=== PATIENT | male | born 1970 | race Caucasian/White ===

== ENCOUNTER 2016-12-14 15:29 | Emergency (ER) | payer OTHER, MEDICAID ==
[~2016-12-14] VITALS: Ht 172.7 cm; Wt 83.9 kg
[~2016-12-14 15:29] MED LIST: PARO10TA26 PO; QUET25TA PO
[2016-12-14 15:47] VITALS: BP 145/87
--- NOTE | 2016-12-14 16:00 | NUR ---
PT IS MEDICALLY CLEARED FOR BOOKING. D/C TO PD IN STABLE CONDITION.
== END 2016-12-14 16:03 ==
LOC: ER 15:31
DX: Z02.89 Encounter for other administrative examinations (principal); F10.129 Alcohol abuse with intoxication, unspecified; F20.9 Schizophrenia, unspecified; Z59.0 Homelessness; F17.200 Nicotine dependence, unspecified, uncomplicated
CPT/HCPCS: 99283; A4606; Z7610

== ENCOUNTER 2017-11-20 12:46 | Emergency (ER) | payer MEDICAID, OTHER ==
[~2017-11-20] VITALS: Ht 172.7 cm; Wt 84.4 kg
[~2017-11-20 12:46] MED LIST changes: -PARO10TA26 PO; +PARO10TA86 PO
--- NOTE | 2017-11-20 12:50 | NUR ---
Note undone in EDM - 11/20/17 at 1323 by MARYAM BIB RA 86, FOUND LAYING IN THE SIDEWALK,(+) ETOH BREATH,ADMIT TO USING HEROINE YESTERDAY, BLOOD SUGAR=80. RR IS EVEN AND UNLABORED WITH NAD NOTED. SKIN IS WARM AND DRY. PLACED ON THE MONITOR. AWAITING MD FOR EVAL.
--- NOTE | 2017-11-20 12:50 | NUR ---
BIB RA 86, FOUND LAYING IN THE SIDEWALK,(+) ETOH BREATH,ADMIT TO USING HEROIN X YESTERDAY, BLOOD SUGAR=80. RR IS EVEN AND UNLABORED WITH NAD NOTED. SKIN IS WARM AND DRY. PLACED ON THE MONITOR. AWAITING MD FOR EVAL.
[2017-11-20] MEDS ORDERED: IV NS 0.9% 1,000 ML BAG IV ONE (13:00)
[2017-11-20] MEDS ORDERED: ONDANSETRON HCL/PF 4 MG/2 ML VIAL IVP ONE (13:00)
[2017-11-20] MEDS ORDERED: ONDANSETRON HCL/PF 4 MG/2 ML VIAL ONE (13:15)
--- NOTE | 2017-11-20 13:30 | NUR ---
Patient is resting comfortably in bed with eyes closed. Easily aroused. VSS
[2017-11-20 13:32] LABS: BASOPHILS # (AUTO) 0.2 /CMM (0.0-0.2); BASOPHILS % (AUTO) 2.9 % (0.0-2.0); EOSINOPHILS % (AUTO) 2.9 % (0.0-6.0); HEMATOCRIT 42 % (39-51); HEMOGLOBIN 14.7 g/dL (13.5-17.5); LYMPHOCYTES % (AUTO) 28.1 % (20.0-44.0); MEAN CORPUSCULAR HEMOGLOBIN 31 PG (26.0-33.0); MEAN CORPUSCULAR HGB CONC 35 g/dl (31.0-36.0); MEAN CORPUSCULAR VOLUME 89 fL (80-96); MONOCYTES # (AUTO) 0.5 /CMM (0.1-1.30); MONOCYTES % (AUTO) 7.7 % (2.0-12.0); NEUTROPHILS # (AUTO) 4.1 /CMM (1.8-8.9); NEUTROPHILS % (AUTO) 58.4 % (43.0-81.0); PLATELET COUNT (AUTO) 168 /CMM (150-450); RDW COEFFICIENT OF VARIATION 12.6 (11.5-15.0); RED BLOOD CELL COUNT(AUTO) 4.71 MIL/uL (4.5-6.0)
[2017-11-20 13:39] LABS: CARBON DIOXIDE 26 mmol/L (21-32); CHLORIDE 107 mmol/L (98-107); CREATININE 0.9 mg/dL (0.6-1.3); GLUCOSE 106 mg/dL (74-106); POTASSIUM 3.6 mmol/L (3.5-5.1); SODIUM SERUM 142 mmol/L (136-145); UREA NITROGEN, BLOOD 11 mg/dL (7-18)
[2017-11-20 13:51] LABS: ALANINE AMINOTRANSFERASE 41 U/L (12-78); ALCOHOL, BLOOD 223 mg/dL (0-0); ALKALINE PHOSPHATASE 77 U/L (46-116); ASPARTATE AMINOTRANSFERASE 54 U/L (15-37); BILIRUBIN,DIRECT 0.2 mg/dL (0.0-0.2); BILIRUBIN,TOTAL 1.1 mg/dL (0.2-1.0); TOTAL PROTEIN, SERUM 6.9 g/dL (6.4-8.2)
[2017-11-20 13:53] LABS: ACETAMINOPHEN < 2 ug/ml (10-30); SALICYLATE 0.5 mg/dL (2.8-20.0)
[2017-11-20 14:08] LABS: APPEARANCE,URINE Slightly Cloudy (CLEAR); BILIRUBIN,URINE SMALL (NEGATIVE); BLOOD, URINE Small Ery/uL (NEGATIVE); COLOR,URINE Yellow (YELLOW); KETONES,URINE 15 (NEGATIVE); LEUKOCYTE ESTERASE ,URINE Negative (NEGATIVE); NITRITE, URINE Negative (NEGATIVE); PH,URINE 5.5 (5.0-8.0); PROTEIN,URINE 100 mg/dl (NEGATIVE); UGLUCOSE Negative (NEGATIVE); UROBILINOGEN,URINE 0.2 EU/dL (0.2)
[2017-11-20 14:14] LABS: SQUAMOUS EPITHELIAL CELL,UR Few /HPF (None Seen)
[2017-11-20 14:15] LABS: FINE GRANULAR CASTS,URINE Few /LPF (None Seen)
[2017-11-20 14:16] LABS: BACTERIA,URINE None seen /HPF (None Seen)
[2017-11-20 14:17] LABS: RBC,URINE 0-2 /HPF (0-2)
--- NOTE | 2017-11-20 14:30 | NUR ---
Patient is resting comfortably in bed with eyes closed. Easily aroused. VSS
--- NOTE | 2017-11-20 15:30 | NUR ---
Patient is resting comfortably in bed with eyes closed. Easily aroused. VSS
--- NOTE | 2017-11-20 16:30 | NUR ---
Patient is resting comfortably in bed with eyes closed. Easily aroused. VSS
--- NOTE | 2017-11-20 19:06 | NUR ---
Report given to RIVERA Gaytan for [facility].
[2017-11-20 22:31] VITALS: BP 122/76
--- NOTE | 2017-11-20 22:33 | NUR ---
Patient discharged to home in stable condition. Written and verbal after care instructions given. Patient verbalizes understanding of instruction.IV removed. Catheter intact and site benign. Pressure and 4x4 applied to site. No bleeding noted. AMBULATED WITH STEADY GAIT UPON DC
== END 2017-11-20 22:32 | disposition home or self-care (01) ==
LOC: ER 12:47
DX: R41.82 Altered mental status, unspecified (principal); F19.10 Other psychoactive substance abuse, uncomplicated; E86.0 Dehydration; R00.0 Tachycardia, unspecified; F10.129 Alcohol abuse with intoxication, unspecified; F15.10 Other stimulant abuse, uncomplicated; F14.10 Cocaine abuse, uncomplicated; F20.9 Schizophrenia, unspecified; F17.200 Nicotine dependence, unspecified, uncomplicated; Z59.0 Homelessness; Y90.7 Blood alcohol level of 200-239 mg/100 ml
CPT/HCPCS: 36415; 80048; 80076; 80305; 80329; 81001; 83690; 85025; 96361; 96374; 99284; A4606; G0480 ×2; J2405; J7030; Z7610; 81000-TC

== ENCOUNTER 2017-11-21 17:34 | Emergency (ER) | payer OTHER ==
[~2017-11-21] VITALS: Ht 172.7 cm; Wt 74.8 kg
[2017-11-21 17:35] VITALS: BP 165/88
[2017-11-21] MEDS ORDERED: THIAMINE HCL 100 MG TABLET ONE (17:38)
[2017-11-21] MEDS ORDERED: LORAZEPAM 1 MG TABLET ONE (17:38)
[2017-11-21] MEDS ORDERED: FOLIC ACID 1 MG TABLET ONE (17:38)
[2017-11-21] MEDS ORDERED: THIAMINE HCL 100 MG TABLET PO ONE (18:00)
[2017-11-21] MEDS ORDERED: FOLIC ACID 1 MG TABLET PO ONE (18:00)
[2017-11-21] MEDS ORDERED: LORAZEPAM 1 MG TABLET PO ONE (18:00)
== END 2017-11-21 17:41 | disposition home or self-care (01) ==
LOC: ER 17:36
DX: F10.10 Alcohol abuse, uncomplicated (principal); F20.9 Schizophrenia, unspecified; F17.200 Nicotine dependence, unspecified, uncomplicated; Z59.0 Homelessness; Z76.5 Malingerer [conscious simulation]; Y90.9 Presence of alcohol in blood, level not specified
CPT/HCPCS: 99284; A4606; Z7610

== ENCOUNTER 2018-01-31 16:04 | Inpatient (IN) | payer OTHER ==
[~2018-01-31] VITALS: Ht 177.8 cm; Wt 79.8 kg
--- NOTE | 2018-01-31 16:08 | NUR ---
PT BIBRA TO ER BED 06. BYSTANDER CALLED 911 AFTER PT WAS NOTED TO BE ALTERED, AND LAYING IN TG STREETS. OPT SEEN IN ER MULTIPLE TIMES FOR ETOH. FACIAL REDNESS NOTED. 1ST DEGREE SUNBURN. BG 99 IN THE FIELD. PLACED ON MONITOR. TACHY DAYTIME CAREGIVER. AWAITING MD MUNGUIA.
--- NOTE | 2018-01-31 16:17 | NUR ---
DR ARIAS AT BEDSIDE FOR EVAL.
[2018-01-31] MEDS ORDERED: IV NS 0.9% 1,000 ML BAG IV ONE ×2 (16:30→19:30)
[2018-01-31 16:36] LABS: BASOPHILS # (AUTO) 0.2 /CMM (0.0-0.2); BASOPHILS % (AUTO) 1.1 % (0.0-2.0); HEMATOCRIT 45 % (39-51); HEMOGLOBIN 15.2 g/dL (13.5-17.5); LYMPHOCYTES # (AUTO) 0.6 /CMM (0.8-4.8); MEAN CORPUSCULAR HGB CONC 34 g/dl (31.0-36.0); MEAN CORPUSCULAR VOLUME 91 fL (80-96); MONOCYTES # (AUTO) 0.6 /CMM (0.1-1.30); MONOCYTES % (AUTO) 3.6 % (2.0-12.0); NEUTROPHILS # (AUTO) 14.3 /CMM (1.8-8.9); NEUTROPHILS % (AUTO) 91.3 % (43.0-81.0); PLATELET COUNT (AUTO) 205 /CMM (150-450); RDW COEFFICIENT OF VARIATION 12.9 (11.5-15.0); RED BLOOD CELL COUNT(AUTO) 4.95 MIL/uL (4.5-6.0); WHITE BLOOD COUNT (AUTO) 15.7 K/uL (4.3-11.0)
[2018-01-31 16:42] LABS: CALCIUM, SERUM 8.1 mg/dL (8.5-10.1); CARBON DIOXIDE 20 mmol/L (21-32); CHLORIDE 108 mmol/L (98-107); CREATININE 1.2 mg/dL (0.6-1.3); GLUCOSE 88 mg/dL (74-106); POTASSIUM 4.5 mmol/L (3.5-5.1); SODIUM SERUM 143 mmol/L (136-145); UREA NITROGEN, BLOOD 11 mg/dL (7-18)
[2018-01-31 16:48] LABS: ALANINE AMINOTRANSFERASE 30 U/L (12-78); ALBUMIN 3.7 g/dL (3.4-5.0); ASPARTATE AMINOTRANSFERASE 80 U/L (15-37); BILIRUBIN,DIRECT 0.2 mg/dL (0.0-0.2); BILIRUBIN,TOTAL 2.2 mg/dL (0.2-1.0); TOTAL PROTEIN, SERUM 6.8 g/dL (6.4-8.2)
[2018-01-31 16:49] LABS: ACETAMINOPHEN < 2 ug/ml (10-30); ALCOHOL, BLOOD < 3 mg/dL (0-0); SALICYLATE 1.6 mg/dL (2.8-20.0)
[2018-01-31 16:59] LABS: ALKALINE PHOSPHATASE 112 U/L (46-116)
--- NOTE | 2018-01-31 18:38 | NUR ---
Tamra chapman in ED - 01/31/18 at 1847 by NAVEED PT SLEEPING IN BED. OM MONITOR W/ STABLE VITALS. WILL CONTINUE TO MONITOR.
--- NOTE | 2018-01-31 18:47 | NUR ---
PT STILL AGITATED. STILL TRYING TO GET OUT OF BED. STATING "I CANT SLEEP." DR ARIAS MADE AWARE. VITALS UPDATED.
[2018-01-31] MEDS: LORAZEPAM INJ 2 MG/ML VIAL IM ONE (18:49)
[2018-01-31] MEDS: diphenhydrAMINE HCL 50 MG/ML VIAL IM ONE ×2 (18:49→18:58)
[2018-01-31] MEDS ORDERED: diphenhydrAMINE HCL 50 MG/ML VIAL ONE (18:52)
[2018-01-31] MEDS ORDERED: LORAZEPAM INJ 2 MG/ML VIAL ONE ×2 (18:52→19:38)
--- NOTE | 2018-01-31 19:07 | NUR ---
REPORT TO ANA STAFFORD FOR [facility].
--- NOTE | 2018-01-31 19:10 | NUR ---
RECEIVED REPORT FROM RIVERA ROGERS FOR [facility]. PT RESTING IN BED WITH NO S/S OF DISTRESS NOTED. WILL CONTINUE TO MONITOR.
[2018-01-31] MEDS ORDERED: HALOPERIDOL LACTATE INJ 5 MG/ML VIAL IM ONE (19:30)
[2018-01-31] MEDS ORDERED: LORAZEPAM INJ 2 MG/ML VIAL IV ONE (19:30)
[2018-01-31] MEDS ORDERED: HALOPERIDOL LACTATE INJ 5 MG/ML VIAL ONE (19:37)
--- NOTE | 2018-01-31 20:20 | NUR ---
PT TO CT
--- NOTE | 2018-01-31 20:35 | NUR ---
PT BACK FROM CT
[2018-01-31 21:25] LABS: APPEARANCE,URINE SL CLOUDY (CLEAR); BILIRUBIN,URINE 2+ (NEGATIVE); BLOOD, URINE 3+ Ery/uL (NEGATIVE); COLOR,URINE YELLOW (YELLOW); KETONES,URINE 3+ (NEGATIVE); LEUKOCYTE ESTERASE ,URINE NEGATIVE (NEGATIVE); NITRITE, URINE NEGATIVE (NEGATIVE); PROTEIN,URINE 2+ mg/dl (NEGATIVE); UGLUCOSE NEGATIVE (NEGATIVE); UROBILINOGEN,URINE 0.2 EU/dL (0.2)
[2018-01-31 21:29] LABS: BACTERIA,URINE Many /HPF (None Seen); SQUAMOUS EPITHELIAL CELL,UR Few /HPF (None Seen)
[2018-01-31 21:30] LABS: URINE AMORPHOUS URATE Many /HPF (None Seen); WBC,URINE 0-2 /HPF (0-3)
[2018-02-01] MEDS ORDERED: LORAZEPAM INJ 2 MG/ML VIAL ONE ×3 (00:19→01:38)
--- NOTE | 2018-02-01 00:21 | NUR ---
PT RESTING IN BED WITH EYES OPEN. PT STILL TACHYCARDIC. MD AWARE. WILL CONTINUE TO MONITOR PT.
[2018-02-01] MEDS ORDERED: IV NS 0.9% 1,000 ML BAG IV ONE (00:30)
[2018-02-01] MEDS ORDERED: ONDANSETRON HCL/PF - ER 4 MG/2 ML VIAL IV ONE (00:30)
[2018-02-01] MEDS ORDERED: Thiamine 100 MG in IV D5W 50 ML IV SCH (00:30)
[2018-02-01] MEDS ORDERED: LORAZEPAM INJ 2 MG/ML VIAL IV ONE (00:30)
[2018-02-01] MEDS ORDERED: Thiamine 100 MG/ML VIAL ONE ×2 (00:36→02:56)
[2018-02-01] MEDS ORDERED: ONDANSETRON HCL/PF 4 MG/2 ML VIAL ONE (00:36)
--- NOTE | 2018-02-01 00:52 | NUR ---
REPORT GIVEN TO ORQUIDEA KHAN FOR [facility]
[2018-02-01] MEDS ORDERED: LORAZEPAM INJ 2 MG/ML VIAL IV STA ×3 (00:54→01:36)
[2018-02-01] MEDS ORDERED: HYDROCODONE/APAP 5/325MG 1 EACH TABLET PO PRN (01:00)
[2018-02-01] MEDS ORDERED: MAGNESIUM HYDROXIDE 30 ML UDC PO PRN (01:00)
[2018-02-01] MEDS ORDERED: ACETAMINOPHEN 325 MG TABLET PO PRN (01:00)
[2018-02-01] MEDS ORDERED: MAG HYDROX/AL HYDROX/SIMETH 30 ML UDC PO PRN (01:00)
[2018-02-01] MEDS ORDERED: ONDANSETRON HCL/PF 4 MG/2 ML VIAL IVP PRN (01:00)
[2018-02-01] MEDS ORDERED: Z GUARD REMEDY 2 OZ OINT TP PRN (01:00)
[2018-02-01] MEDS ORDERED: ZOLPIDEM TARTRATE 5 MG TABLET PO PRN (01:00)
[2018-02-01] MEDS ORDERED: LORAZEPAM INJ 2 MG/ML VIAL IV PRN (01:00)
[2018-02-01] MEDS: Thiamine 100 MG in IV D5W 50 ML IV SCH (01:00)
--- NOTE | 2018-02-01 01:12 | NUR ---
PER , PT PLACED ON NC 3L/M
[2018-02-01 02:00] VITALS: BP 143/94
--- NOTE | 2018-02-01 02:00 | NUR ---
RN ORQUIDEA NOTE PATIENT ADMITTED FROM ER AOX1-2, SPEECH UNCLEAR, LETHARGIC, ON 2L O2 VIA NC, ST ON TELE MONITOR, MULTIPLE ABRASIONS NOTED THROUGHOUT BODY, SKIN KEPT CLEAN AND DRY, LAC #20G AND 18G RAC IV IN PLACE, PATENT FLUSHING WELL, SITES CDI, YOGI SOFT WRIST RESTRAINTS APPLIED DUE TO ALTERED LOC AND DISRUPTION OF MEDICAL CARE, SAFETY MAINTAINED AT ALL TIMES, CALL LIGHT WITHIN REACH, BED IN LOW LOCKED POSITION, WILL CONTINUE TO MONITOR FOR ANY CHANGES IN CONDITION.
[2018-02-01] MEDS ORDERED: Folic acid 1 MG/0.2 ML VIAL ONE (02:57)
[2018-02-01] MEDS: IV 1/2NS 1000 ML 1,000 ML IV PRN ×2 (03:10→16:57)
[2018-02-01] MEDS: PANTOPRAZOLE 40 MG VIAL IV SCH ×3 (03:12→09:55)
[2018-02-01] MEDS: Folic acid 1 MG in IV D5W 50 ML IV SCH (03:22)
[2018-02-01 04:00] VITALS: BP 149/97
[2018-02-01 06:40] LABS: BASOPHILS % (AUTO) 0.4 % (0.0-2.0); EOSINOPHILS % (AUTO) 0.1 % (0.0-6.0); HEMATOCRIT 40 % (39-51); HEMOGLOBIN 13.3 g/dL (13.5-17.5); LYMPHOCYTES # (AUTO) 1.6 /CMM (0.8-4.8); LYMPHOCYTES % (AUTO) 18.6 % (20.0-44.0); MEAN CORPUSCULAR HGB CONC 34 g/dl (31.0-36.0); MEAN CORPUSCULAR VOLUME 93 fL (80-96); MONOCYTES # (AUTO) 0.4 /CMM (0.1-1.30); NEUTROPHILS # (AUTO) 6.4 /CMM (1.8-8.9); NEUTROPHILS % (AUTO) 75.9 % (43.0-81.0); PLATELET COUNT (AUTO) 141 /CMM (150-450); RDW COEFFICIENT OF VARIATION 13.5 (11.5-15.0); RED BLOOD CELL COUNT(AUTO) 4.25 MIL/uL (4.5-6.0); WHITE BLOOD COUNT (AUTO) 8.4 K/uL (4.3-11.0)
[2018-02-01 07:23] LABS: BILIRUBIN,TOTAL 2.2 mg/dL (0.2-1.0); CALCIUM, SERUM 7.5 mg/dL (8.5-10.1); CREATININE 0.9 mg/dL (0.6-1.3); MAGNESIUM 2.1 mg/dL (1.8-2.4); PHOSPHORUS 2.1 mg/dL (2.5-4.9); POTASSIUM 3.4 mmol/L (3.5-5.1); TOTAL PROTEIN, SERUM 5.9 g/dL (6.4-8.2)
[2018-02-01 08:00] VITALS: BP 118/76
[2018-02-01] MEDS ORDERED: POTASSIUM CHLORIDE 20 MEQ TAB.PRT.SR PO SCH (10:30)
[2018-02-01] MEDS ORDERED: K PHOS NEUTRAL 250 MG TABLET PO ONE (10:30)
[2018-02-01 12:00] VITALS: BP_SYST 105; BP_SYST 133; BP_DIAS 71; BP_DIAS 77
[2018-02-01 16:00] VITALS: BP 133/87
[2018-02-01] MEDS ORDERED: CEPHALEXIN MONOHYDRATE 500 MG CAPSULE PO SCH (17:00)
[2018-02-01] MEDS: CEFTRIAXONE 1 G in IV D5W 50 ML IV SCH (17:11)
--- NOTE | 2018-02-01 19:04 | NUR ---
RN CLOSING NOTE PT REMAINED CALM COOPERATIVE THROUGHOUT THE SHIFT, MOSTLY SLEEPY, PT CLEANED AND FED, MEDS GIVEN, SAFETY MEASURES IN PLACE. WILL ENDORSE TO FIREWORKS ASSEMBLY SUPERVISOR.
[2018-02-01 20:00] VITALS: BP 141/87
--- NOTE | 2018-02-01 20:00 | NUR ---
Received patient drowsy verbalized did not sleep in long-term for 60 days and he is on parole with left leg monitoring device.Alert and oriented x 3.VS stable.ST 101-115 per monitor.On room air respiration even and unlabored SPO2 98%.Denies pain.IVF infusing well.Safety measures implemented with 1:1 sitter at bedside.Call light within easy reach.
[2018-02-01] MEDS: METRONIDAZOLE 500MG/ NS 100ML 500 MG in PREMIX 1 EA IV SCH (21:07)
[2018-02-02] VITALS: BP 147/90
[2018-02-02] MEDS: Folic acid 1 MG in IV D5W 50 ML IV SCH (00:45)
[2018-02-02] MEDS: Thiamine 100 MG in IV D5W 50 ML IV SCH (01:16)
[2018-02-02] MEDS: IV 1/2NS 1000 ML 1,000 ML IV PRN ×2 (03:27→17:05)
[2018-02-02 04:00] VITALS: BP 137/86
[2018-02-02] MEDS: METRONIDAZOLE 500MG/ NS 100ML 500 MG in PREMIX 1 EA IV SCH ×3 (05:03→20:00)
--- NOTE | 2018-02-02 06:30 | NUR ---
Patient incontinent of urine x 5.Kept clean and dry.AM care done.Good PO intake. VS remains stable.All due medications administered.Report given to incoming RN for [facility].
--- NOTE | 2018-02-02 07:00 | NUR ---
ORQUIDEA RN NOTES RECEIVED PT ON BED, ALERT AND ORIENTED X3. RESPIRATION EVEN AND UNLABORED,HAS O2 CONTINUOUSLY WITH NASAL CANNULA. RAC IV SITE G20 AND L AC IV SITES CLEAN , DRY AND INTACT, WITH 1/2 NS AT 125CC/HR RUNNING VIA L AC IV SITE , SITTER AT THE BEDSIDE FOR SAFETY PRECAUTION, NO DISTRESS NOTED AT THIS TIME , SR UPx2, CALL LIGHT, WITHIN EASY REACH , BED LOCKED AND IN LOWEST POSITION, WILL CONTINUE TO MONITOR.
[2018-02-02 07:07] LABS: BASOPHILS # (AUTO) 0.1 /CMM (0.0-0.2); BASOPHILS % (AUTO) 0.8 % (0.0-2.0); EOSINOPHILS % (AUTO) 0.7 % (0.0-6.0); HEMATOCRIT 41 % (39-51); LYMPHOCYTES % (AUTO) 13.6 % (20.0-44.0); MEAN CORPUSCULAR HGB CONC 34 g/dl (31.0-36.0); MEAN CORPUSCULAR VOLUME 92 fL (80-96); MONOCYTES # (AUTO) 0.2 /CMM (0.1-1.30); MONOCYTES % (AUTO) 2.8 % (2.0-12.0); NEUTROPHILS # (AUTO) 5.9 /CMM (1.8-8.9); NEUTROPHILS % (AUTO) 82.1 % (43.0-81.0); PLATELET COUNT (AUTO) 156 /CMM (150-450); RDW COEFFICIENT OF VARIATION 13.3 (11.5-15.0); RED BLOOD CELL COUNT(AUTO) 4.48 MIL/uL (4.5-6.0); WHITE BLOOD COUNT (AUTO) 7.2 K/uL (4.3-11.0)
[2018-02-02 07:25] LABS: ALBUMIN 2.9 g/dL (3.4-5.0); BILIRUBIN,TOTAL 0.9 mg/dL (0.2-1.0); CALCIUM, SERUM 8.1 mg/dL (8.5-10.1); CREATININE 0.8 mg/dL (0.6-1.3); MAGNESIUM 1.9 mg/dL (1.8-2.4); PHOSPHORUS 2.1 mg/dL (2.5-4.9); POTASSIUM 3.3 mmol/L (3.5-5.1); TOTAL PROTEIN, SERUM 5.9 g/dL (6.4-8.2)
[2018-02-02 08:00] VITALS: BP 151/89
[2018-02-02] MEDS: MULTIVITAMINS,THERAGRAN 1 UDTAB TABLET PO SCH (08:32)
[2018-02-02] MEDS: FOLIC ACID 1 MG TABLET PO SCH (08:32)
[2018-02-02] MEDS: PANTOPRAZOLE 40 MG VIAL IV SCH (08:33)
--- NOTE | 2018-02-02 09:08 | NUR ---
WOUND CARE CONSULT: PT PRESENTS WITH DRY ABRASIONS ON FINGERS AND DRY ESCHARS TO LEFT FOOT AND ANKLE AREAS, PRESENT ON ADMISSION. RECOMMENDATIONS MADE FOR SKIN PROTECTION AND DISCUSSED WITH NURSING STAFF. CURRENT NISHA SCORE IS 17. RECOMMEND DPM CONSULT. WILL SEE PRN. LOBATO IN AGREEMENT WITH PLAN OF CARE. Addendum: 02/02/18 at 0909 by PELON PECK WNDNU Amended: Links added.
[2018-02-02] MEDS ORDERED: POTASSIUM CHLORIDE 20 MEQ TAB.PRT.SR PO SCH (10:30)
[2018-02-02] MEDS: THIAMINE HCL 100 MG TABLET PO SCH (11:01)
[2018-02-02] MEDS ORDERED: K PHOS NEUTRAL 250 MG TABLET PO ONE (11:30)
[2018-02-02 12:00] VITALS: BP 135/90
--- NOTE | 2018-02-02 15:02 | NUR ---
Social service consult requested by Dr. Barton for homelessness. Pt. is a 47 year old male who was admitted to [facility] for alcohol delirium. SW met with pt. bedside. Pt. is alert and oriented x 4. Pt. appeared dirty and disheveled. Pt's fingernails were long and had dirt underneath them. Pt. states he has been homeless for the past 10 years. Pt. [facility] of [facility] the past few years. Pt. is on parole however, states he broke his ankle monitor. Pt. is on parole for landon theft. MARLENE requested for pt's parole officers name. chief procurement officer is Ruperto Jett. Pt. could not provide the phone number but stated the parole office is in [place]. MARLENE informed pt. she would have to contact him to let him know. Pt. also stated, he will most likely [facility] back to [facility]. Pt. has a psychiatric history of Bipolar and seizure disorder. Pt. was taking Depakote and Keppra in [facility]. Pt. drinks approximately five 24 ounce of beers per day. Pt. states he occasionally uses crystal Methamphetamine. Pt. states he suffers from insomnia too. Pt. has no history of drug/ alcohol treatment programs. SW offered pt. homeless [facility] placement, however pt. stated he will most likely go back to [facility]. MARLENE contacted [employer] [facility] in [place] and spoke to pt's wildlife officer Ruperto Jett. Officer Johnie informed SW that pt. will be arrested upon discharge because he turned off his ankle bracelet and has a warrant from court for his arrest. Officer Johnie would like to be notified on day of discharge because pt. will need to be under arrest. MARLENE updated pt's RN Elissa and pillowcase folder Radha regarding pt. being on parole and his discharge disposition.
[2018-02-02 16:00] VITALS: BP_SYST 131; BP_SYST 137; BP_DIAS 89
[2018-02-02] MEDS: CEFTRIAXONE 1 G in IV D5W 50 ML IV SCH (16:56)
[2018-02-02] MEDS: LACTOBACILLUS RHAMNOSUS GG 1 EACH CAP.SPRINK PO SCH (16:57)
--- NOTE | 2018-02-02 18:33 | NUR ---
ORQUIDEA RN CLOSING NOTES PT IS ON BED.WITH IV FLUIDS IS GOING ON.NO SOB AND ACUTE DISTRESS NOTED.IV LINE IS IN RIGHT FA,SITE IS CLEAN,DRY AND INTACT.PT IS WITH 2L O2 VIA NC CONTINUOUSLY.WILL ENDORSE NEXT SHIFT FOR CONTINUE TO MONITOR..
[2018-02-02 20:00] VITALS: BP 153/97
--- NOTE | 2018-02-02 20:00 | NUR ---
ORQUIDEA/RN NOTES: RECEIVED PT. IN BED SLEEPING BUT EASILY AROUSABLE. DENIES ANY C/O CHEST PAIN OR SOB AT PRESENT. ON TELE MONITOR W/ SR 94. W/ IVF GOING W/ NO S/S OF INFECTION/INFILTRATION NOTED. W/ 1:1 SITTER AT BEDSIDE. ALL NEEDS MEET AND ATTENDED. WILL CONTINUE TO MONITOR.
[2018-02-02] MEDS: QUETIAPINE FUMARATE 25 MG TABLET PO SCH (21:01)
[2018-02-03] VITALS: BP 133/89
[2018-02-03] MEDS: IV 1/2NS 1000 ML 1,000 ML IV PRN ×2 (02:56→14:14)
[2018-02-03 04:00] VITALS: BP 127/81
[2018-02-03] MEDS: METRONIDAZOLE 500MG/ NS 100ML 500 MG in PREMIX 1 EA IV SCH ×3 (04:00→21:57)
--- NOTE | 2018-02-03 07:00 | NUR ---
ORQUIDEA RN NOTES RECEIVED PT ON BED.ALERT AND ORIENTED X3.BREATHING IS EVEN AND UNLABORED.IV LINE IS ON RIGHT FA G18 WITH IV FLUIDS,SITE IS CLEAN,DRY AND INTACT.SITTER IS AT BEDSIDE FOR SAFETY.NO SOB AND ACUTE DISTRESS NOTED.BED IS IN LOW POSITION AND LOCKED.CALL LIGHT IS WITHIN REACH.SR UP X2.WILL CONTINUE TO MONITOR THE PT CLOSELY.
--- NOTE | 2018-02-03 07:05 | NUR ---
ORQUIDEA/RN NOTES: REPORT GIVEN TO NEXT SHIFT NURSE FOR [facility].
[2018-02-03 07:27] LABS: BASOPHILS % (AUTO) 0.2 % (0.0-2.0); EOSINOPHILS % (AUTO) 1.9 % (0.0-6.0); HEMATOCRIT 42 % (39-51); LYMPHOCYTES # (AUTO) 1.1 /CMM (0.8-4.8); LYMPHOCYTES % (AUTO) 19.9 % (20.0-44.0); MEAN CORPUSCULAR HGB CONC 33 g/dl (31.0-36.0); MEAN CORPUSCULAR VOLUME 93 fL (80-96); MONOCYTES # (AUTO) 0.1 /CMM (0.1-1.30); MONOCYTES % (AUTO) 2.3 % (2.0-12.0); NEUTROPHILS # (AUTO) 4.3 /CMM (1.8-8.9); NEUTROPHILS % (AUTO) 75.7 % (43.0-81.0); PLATELET COUNT (AUTO) 156 /CMM (150-450); RDW COEFFICIENT OF VARIATION 13.3 (11.5-15.0); RED BLOOD CELL COUNT(AUTO) 4.52 MIL/uL (4.5-6.0); WHITE BLOOD COUNT (AUTO) 5.7 K/uL (4.3-11.0)
[2018-02-03 07:52] LABS: ALBUMIN 2.7 g/dL (3.4-5.0); BILIRUBIN,TOTAL 0.6 mg/dL (0.2-1.0); CALCIUM, SERUM 8.1 mg/dL (8.5-10.1); CREATININE 0.7 mg/dL (0.6-1.3); MAGNESIUM 1.8 mg/dL (1.8-2.4); PHOSPHORUS 3.3 mg/dL (2.5-4.9); POTASSIUM 3.4 mmol/L (3.5-5.1); TOTAL PROTEIN, SERUM 5.6 g/dL (6.4-8.2)
[2018-02-03 08:00] VITALS: BP 144/96
[2018-02-03] MEDS: LACTOBACILLUS RHAMNOSUS GG 1 EACH CAP.SPRINK PO SCH ×2 (08:26→16:04)
[2018-02-03] MEDS: FOLIC ACID 1 MG TABLET PO SCH (08:26)
[2018-02-03] MEDS: MULTIVITAMINS,THERAGRAN 1 UDTAB TABLET PO SCH (08:26)
[2018-02-03] MEDS: THIAMINE HCL 100 MG TABLET PO SCH (08:26)
[2018-02-03] MEDS: PANTOPRAZOLE 40 MG VIAL IV SCH (08:27)
[2018-02-03] MEDS ORDERED: POTASSIUM CHLORIDE 20 MEQ TAB.PRT.SR PO SCH (11:00)
--- NOTE | 2018-02-03 11:41 | NUR ---
MARLENE was informed my case finisher Chanel that pt. is being discharged today as per Dr. Loco. MARLENE contacted pt's central office mechanic Johnie to inform him of pt's discharge. Officer Johnie requested for MARLENE to have the pt. be discharged tomorrow since he has to get the authorizations for his arrest. Officer Johnie also informed MARLENE stating, " he is a really bad dude and is considered a public safety risk." MARLENE informed Officer Johnie she will request Dr. Loco to have the pt. be discharged tomorrow and will call him back to confirm. MARLENE informed case manage Chanel with the aforementioned information. Chanel informed Dr. Loco regarding the discharge be held till tomorrow. MARLENE to inform ORQUIDEA Gaffney regarding discharge being held. Addendum: 02/03/18 at 1205 by ROMAN ROSARIO MARLENE called Officer Johnie and informed him that the doctor will hold discharge until tomorrow. Officer Johnie informed MARLENE that they will be here at [facility] tomorrow 02/04/18 between 10-11AM to arrest the pt. MARLENE updated ORQUIDEA Gaffney and case finisher Chanel regarding the discharge plan for tomorrow.
[2018-02-03 16:00] VITALS: BP 117/78
[2018-02-03] MEDS: CEFTRIAXONE 1 G in IV D5W 50 ML IV SCH (16:04)
--- NOTE | 2018-02-03 18:39 | NUR ---
MS RN CLOSING NOTES PT IS ON BED.ALERT AND ORIENTED X34.IV FLUID IS INFUSING ON RIGHT FA,SITE IS CLEAN,DRY AND INTACT.PT IS TOLERATING WELL IN RA WITH O2 SAT 95%.NO ACUTE DISTRESS AND SOB NOTED.WILL ENDORSE TO THE NEXT SHIFT FOR CONTINUITY OF CARE.
[2018-02-03 20:00] VITALS: BP 130/83
--- NOTE | 2018-02-03 20:27 | NUR ---
RN OPENING NOTES RECEIVED REPORT FROM JANNA STAFFORD. PATIENT A/A/O X3, ABLE TO MAKE SOME NEEDS KNOWN & STATE PAIN. BREATHING EVEN & UNLABORED, TOLERATING ROOM AIR. RADIAL PULSES PRESENT & BOUNDING. DENIES ANY SOB OR DIFFICULTY BREATHING. RIGHT FOREARM IV #18 INTACT & PATENT W/ DRESSING CDI & IVF 1/2 NS INFUSING WELL @ 125 ML/HR. DENIES ANY PAIN OR DISCOMFORT @ THIS TIME. SAFETY MEASURES IN PLACE W/ CALL LIGHT WITHIN REACH & SITTER @ BEDSIDE. WILL CONTINUE TO MONITOR.
[2018-02-03] MEDS: QUETIAPINE FUMARATE 25 MG TABLET PO SCH (21:57)
[2018-02-04] MEDS: IV 1/2NS 1000 ML 1,000 ML IV PRN (02:09)
[2018-02-04 04:00] VITALS: BP 136/90
[2018-02-04] MEDS: METRONIDAZOLE 500MG/ NS 100ML 500 MG in PREMIX 1 EA IV SCH (05:19)
[2018-02-04 06:38] LABS: CALCIUM, SERUM 8.5 mg/dL (8.5-10.1); CREATININE 0.7 mg/dL (0.6-1.3); POTASSIUM 3.5 mmol/L (3.5-5.1)
[2018-02-04 08:00] VITALS: BP 132/81
[2018-02-04] MEDS: THIAMINE HCL 100 MG TABLET PO SCH (09:00)
[2018-02-04] MEDS: FOLIC ACID 1 MG TABLET PO SCH (09:00)
[2018-02-04] MEDS: MULTIVITAMINS,THERAGRAN 1 UDTAB TABLET PO SCH (09:00)
[2018-02-04] MEDS: PANTOPRAZOLE 40 MG VIAL IV SCH (09:00)
[2018-02-04] MEDS: LACTOBACILLUS RHAMNOSUS GG 1 EACH CAP.SPRINK PO SCH (09:00)
--- NOTE | 2018-02-04 11:23 | NUR ---
patient refused to have pictures of wounds taken before discharge
--- NOTE | 2018-02-04 11:35 | NUR ---
MARLENE met with party plan sales agent Luc Jett from [facility] and his partner and escorted him to pt's room. Pt. is being discharged and taken into custody. ORQUIDEA Gaffney is assisting the pt. with the discharge.
--- NOTE | 2018-02-04 12:29 | NUR ---
nursing notes patient discharged and left with chief talent officer Kelly Jett in stable condition with private car.
== END 2018-02-04 11:44 | disposition home or self-care (01) | DRG 137 ==
LOC: ER 16:08 → TELE-TD 02-01 00:37 → MEDSG1 02-03 12:13
PROVIDERS: ADMIT Internal Medicine; ATTEND Internal Medicine
DX: J69.0 Pneumonitis due to inhalation of food and vomit (principal); G92 Toxic encephalopathy; E87.2 Acidosis; D69.6 Thrombocytopenia, unspecified; F20.9 Schizophrenia, unspecified; E44.1 Mild protein-calorie malnutrition; K70.10 Alcoholic hepatitis without ascites; E86.0 Dehydration; Z59.0 Homelessness; J33.8 Other polyp of sinus; N39.0 Urinary tract infection, site not specified; E87.6 Hypokalemia; F39 Unspecified mood [affective] disorder; G47.00 Insomnia, unspecified; R41.82 Altered mental status, unspecified; F15.10 Other stimulant abuse, uncomplicated; D64.9 Anemia, unspecified; R74.0 Nonspecific elevation of levels of transaminase and lactic acid dehydrogenase [LDH]; F10.229 Alcohol dependence with intoxication, unspecified; F10.239 Alcohol dependence with withdrawal, unspecified
CPT/HCPCS: 36415; 70450-TC; 71045-TC; 80048-TC; 80053-TC; 80061-TC; 80076-TC; 80305; 81000-TC; 83690-TC; 83735-TC; 84100-TC; 85025-TC; 87081-TC; 87086-TC; A4216; A4606; A6402; C9113; G0480; J0696; J1200; J1630; J2060; J2405; J3411; J3490; J7030; J7060; Z7610

== ENCOUNTER 2018-04-21 13:51 | Emergency (ER) | payer OTHER ==
[~2018-04-21] VITALS: Ht 177.8 cm; Wt 79.8 kg
--- NOTE | 2018-04-21 14:15 | NUR ---
PT BIB RA FOR ETOH INTOX. CALM COOPERATIVE. NAD NOTED. ADMITS TO ETOH USE TODAY. RESP EVEN UNLABORED. SKIN WARM DRY. IN ER BED. GIVEN 1:1 SITTER FOR SAFETY.
--- NOTE | 2018-04-21 15:40 | NUR ---
RESTING COMFORTABLY, NAD NOTED
--- NOTE | 2018-04-21 18:36 | NUR ---
RESTING QUIETLY, NAD NOTED, WITH SITTER AT BEDSIDE Addendum: 04/21/18 at 1846 by HFOX PROVIDED WITH LAKEISHA HUSSEIN
[2018-04-21 21:16] VITALS: BP 128/76
--- NOTE | 2018-04-21 21:16 | NUR ---
AMBULATED FROM ER WITH STEADY GAIT. Patient discharged to home in stable condition. Written and verbal after care instructions given. Patient verbalizes understanding of instruction.
== END 2018-04-21 21:17 | disposition home or self-care (01) ==
LOC: ER 13:53
DX: F10.129 Alcohol abuse with intoxication, unspecified (principal); F20.9 Schizophrenia, unspecified; F14.10 Cocaine abuse, uncomplicated; F15.10 Other stimulant abuse, uncomplicated; F17.210 Nicotine dependence, cigarettes, uncomplicated; R56.9 Unspecified convulsions; R00.0 Tachycardia, unspecified; Y90.9 Presence of alcohol in blood, level not specified; Z59.0 Homelessness
CPT/HCPCS: A4606; Z7610

== ENCOUNTER 2018-10-05 02:08 | Emergency (ER) | payer OTHER ==
[~2018-10-05] VITALS: Ht 172.7 cm; Wt 82.6 kg
[2018-10-05 02:47] VITALS: BP 157/98
--- NOTE | 2018-10-05 07:26 | NUR ---
PT ASSESSED ON BED AWAKE, [id number], NOT IN RESPIRATORY DISTRESS, FOODTRAY PROVIDED.
--- NOTE | 2018-10-05 08:11 | NUR ---
Patient given written and verbal discharge instructions. Patient verbalizes understanding of instructions. Patient is ambulatory with steady gait. Refuses offer of skilled nursing placement. Patient given list of available shelters in surrounding area.
== END 2018-10-05 08:14 | disposition home or self-care (01) ==
LOC: ER 02:11
DX: F10.10 Alcohol abuse, uncomplicated (principal); Z59.0 Homelessness; F17.200 Nicotine dependence, unspecified, uncomplicated; Y90.9 Presence of alcohol in blood, level not specified
CPT/HCPCS: Z7502

== ENCOUNTER 2018-12-22 02:17 | Emergency (ER) | payer OTHER ==
[~2018-12-22] VITALS: Ht 175.3 cm; Wt 72.6 kg
--- NOTE | 2018-12-22 02:30 | NUR ---
PT BIBRA39, PER EMS PT SHOT UP HEROINE YESTERDAY AND HAS LEG PAIN TODAY. PT AXO4. RESPIRATIONS EVEN AND UNLABORED. PT PUT ON THE CIGARETTE PACKAGE EXAMINER AND PULSE OX. PENDING EVAL FROM ER .
--- NOTE | 2018-12-22 04:30 | NUR ---
PT RESTING IN BED, NAD NOTED. WILL CONTINUE TO MONITOR.
[2018-12-22 06:21] VITALS: BP 133/74
== END 2018-12-22 06:22 | disposition home or self-care (01) ==
LOC: ER 02:18
DX: L55.9 Sunburn, unspecified (principal); S80.812A Abrasion, left lower leg, initial encounter; F11.10 Opioid abuse, uncomplicated; F10.239 Alcohol dependence with withdrawal, unspecified; R56.9 Unspecified convulsions; F17.200 Nicotine dependence, unspecified, uncomplicated; Y90.9 Presence of alcohol in blood, level not specified; Z59.0 Homelessness; X19.XXXA Contact with other heat and hot substances, initial encounter; Y93.89 Activity, other specified; Y92.89 Other specified places as the place of occurrence of the external cause; Y99.8 Other external cause status
CPT/HCPCS: 99283; A6403

== ENCOUNTER 2020-08-07 18:15 | Emergency (ER) | payer OTHER ==
[~2020-08-07] VITALS: Ht 172.7 cm; Wt 95.3 kg
[2020-08-07 18:57] LABS: BASOPHILS % (AUTO) 0.6 % (0.0-2.0); EOSINOPHILS % (AUTO) 3.1 % (0.0-6.0); HEMATOCRIT 45 % (39-51); HEMOGLOBIN 15.5 g/dL (13.5-17.5); LYMPHOCYTES # (AUTO) 1.9 /CMM (0.8-4.8); LYMPHOCYTES % (AUTO) 30.7 % (20.0-44.0); MEAN CORPUSCULAR HGB CONC 34 g/dl (31.0-36.0); MEAN CORPUSCULAR VOLUME 96 fL (80-96); MONOCYTES # (AUTO) 0.4 /CMM (0.1-1.30); MONOCYTES % (AUTO) 6.2 % (2.0-12.0); NEUTROPHILS # (AUTO) 3.7 /CMM (1.8-8.9); NEUTROPHILS % (AUTO) 59.4 % (43.0-81.0); PLATELET COUNT (AUTO) 189 /CMM (150-450); RED BLOOD CELL COUNT(AUTO) 4.73 MIL/uL (4.5-6.0); WHITE BLOOD COUNT (AUTO) 6.2 K/uL (4.3-11.0)
[2020-08-07 19:08] LABS: ALANINE AMINOTRANSFERASE 32 U/L (12-78); ALBUMIN 3.6 g/dL (3.4-5.0); ALCOHOL, BLOOD 82 mg/dL (0-0); ALKALINE PHOSPHATASE 112 U/L (46-116); ASPARTATE AMINOTRANSFERASE 35 U/L (15-37); BILIRUBIN,DIRECT 0.1 mg/dL (0.0-0.2); BILIRUBIN,TOTAL 0.3 mg/dL (0.2-1.0); CALCIUM, SERUM 8.4 mg/dL (8.5-10.1); CARBON DIOXIDE 27 mmol/L (21-32); CHLORIDE 104 mmol/L (98-107); CREATININE 0.9 mg/dL (0.6-1.3); GLUCOSE 120 mg/dL (74-106); POTASSIUM 3.4 mmol/L (3.5-5.1); SODIUM SERUM 142 mmol/L (136-145); TOTAL PROTEIN, SERUM 6.7 g/dL (6.4-8.2); UREA NITROGEN, BLOOD 9 mg/dL (7-18)
[2020-08-07 19:09] LABS: ACETAMINOPHEN < 0 ug/ml (10-30)
--- NOTE | 2020-08-07 19:10 | NUR ---
BIBS FOR C/O SI NAD INABILITY TO SLEEP , PLANNING TO RUN INTO TRAFFIC. PT AMBULATORY WITH STEADY GAITS. VSS. REMAINED UNDER CLOSE SUPERVISION AND SI PRECAUTION. WILL CONT TO MONITOR,
--- NOTE | 2020-08-08 00:40 | NUR ---
PT GOT ACCEPTED AT [facility] BY DR LOOMIS. # FOR REPORT: [phone] EXT: [phone]
--- NOTE | 2020-08-08 00:45 | NUR ---
REPORT GIVEN TO DOREEN AT [facility]
--- NOTE | 2020-08-08 00:57 | NUR ---
[facility] ETA [id number]
[2020-08-08 01:38] VITALS: BP 141/79
--- NOTE | 2020-08-08 01:38 | NUR ---
[facility]
== END 2020-08-08 01:44 ==
LOC: ER 18:17
DX: Z04.6 Encounter for general psychiatric examination, requested by authority (principal); F20.9 Schizophrenia, unspecified; F10.239 Alcohol dependence with withdrawal, unspecified; F32.9 Major depressive disorder, single episode, unspecified; Z59.0 Homelessness; Y90.4 Blood alcohol level of 80-99 mg/100 ml
CPT/HCPCS: 36415; 80048-TC; 80076-TC; 85025-TC; G0480

== ENCOUNTER 2021-09-20 19:41 | Emergency (ER) | payer OTHER ==
[~2021-09-20] VITALS: Ht 172.7 cm; Wt 81.6 kg
--- NOTE | 2021-09-20 21:00 | NUR ---
PATIENT BIBRA C/O + SI WITH PLAN TO DRINK SELF TO . PATIENT LOOKING FOR VOL PSYCH ADMIT. PATIENT IS A/O X 4, RR EVEN AND UNLABORED NO SOB NOTED. PATIENT WALKIE TALKIE, SKIN INTACT. PATIENT TAKEN TO ER BED 18, PLACED IN HOSPITAL GOWN, BELONGINGS TAKEN AND PLACED IN PT LOCKER. WILL CONTINUE TO MONITOR.
--- NOTE | 2021-09-20 21:08 | NUR ---
COVID SWAB COLLECTED AND SENT TO LAB
--- NOTE | 2021-09-20 21:11 | NUR ---
URINE COLLECTED AND SENT TO LAB
[2021-09-20 21:24] LABS: BASOPHILS # (AUTO) 0.1 K/uL (0.0-0.2); BASOPHILS % (AUTO) 0.5 % (0.0-2.0); HEMATOCRIT 42 % (39-51); HEMOGLOBIN 14.8 g/dL (13.5-17.5); LYMPHOCYTES # (AUTO) 3.1 K/uL (0.8-4.8); LYMPHOCYTES % (AUTO) 25.2 % (20.0-44.0); MEAN CORPUSCULAR HGB CONC 35 g/dl (31.0-36.0); MEAN CORPUSCULAR VOLUME 89 fL (80-96); MONOCYTES # (AUTO) 1.1 K/uL (0.1-1.30); MONOCYTES % (AUTO) 8.9 % (2.0-12.0); NEUTROPHILS % (AUTO) 64.4 % (43.0-81.0); PLATELET COUNT (AUTO) 225 K/uL (150-450); RED BLOOD CELL COUNT(AUTO) 4.72 MIL/uL (4.5-6.0); WHITE BLOOD COUNT (AUTO) 12.4 K/uL (4.3-11.0)
[2021-09-20 21:46] LABS: ALBUMIN 4.4 g/dL (3.4-5.0); BILIRUBIN,DIRECT 0.2 mg/dL (0.0-0.2); BILIRUBIN,TOTAL 1.2 mg/dL (0.2-1.0); CALCIUM, SERUM 8.1 mg/dL (8.5-10.1); CREATININE 0.9 mg/dL (0.6-1.3); POTASSIUM 3.6 mmol/L (3.5-5.1); TOTAL PROTEIN, SERUM 7.5 g/dL (6.4-8.2)
[2021-09-20 21:52] LABS: BILIRUBIN,URINE NEGATIVE (NEGATIVE); COLOR,URINE YELLOW (YELLOW); LEUKOCYTE ESTERASE ,URINE NEGATIVE (NEGATIVE); NITRITE, URINE NEGATIVE (NEGATIVE); PH,URINE 5.5 (5.0-8.0); PROTEIN,URINE 100 mg/dl (NEGATIVE); UGLUCOSE NEGATIVE (NEGATIVE); UROBILINOGEN,URINE 0.2 EU/dL (0.2)
[2021-09-20 21:58] LABS: RBC,URINE 0-2 /HPF (0-2); WBC,URINE 0-2 /HPF (0-3)
[2021-09-20 21:59] LABS: BACTERIA,URINE None seen /HPF (None Seen); SQUAMOUS EPITHELIAL CELL,UR 0-2 /HPF (None Seen)
[2021-09-20] MEDS ORDERED: IV NS 0.9% 1,000 ML BAG IV ONE (22:00)
--- NOTE | 2021-09-20 22:17 | NUR ---
PT REFUSING IV LINE , MADE AWARE
--- NOTE | 2021-09-20 23:15 | NUR ---
FAXED CLINICALS TO [facility]
[2021-09-21] MEDS ORDERED: GELATIN SPONGE,ABSORBABLE 1 SPONGE SPONGE TP ONE (05:55)
--- NOTE | 2021-09-21 06:19 | NUR ---
CALLED [facility]. NO BED AVAIABLE AT [facility]. AWAITING FOR FEEDBACK FROM [place]
--- NOTE | 2021-09-21 07:26 | NUR ---
ACCEPTED AT [facility] UNDER DR PRADHAN REPORT NUMBER [phone]
--- NOTE | 2021-09-21 08:23 | NUR ---
[facility] CALLED FOR TRANSPORT ETA 60 MINS PER ANTONIO
[2021-09-21 09:31] VITALS: BP 145/81
--- NOTE | 2021-09-21 09:33 | NUR ---
Patient left in stable condition accompanied by [facility] in no distress, all patient's belongings sent with patient. Going to replaced by [facility].
== END 2021-09-21 09:33 ==
LOC: ER 19:49
DX: R45.851 Suicidal ideations (principal); Z59.02 Unsheltered homelessness; Z65.2 Problems related to release from prison; F17.210 Nicotine dependence, cigarettes, uncomplicated; Z20.822 Contact with and (suspected) exposure to COVID-19; F10.10 Alcohol abuse, uncomplicated; Y90.7 Blood alcohol level of 200-239 mg/100 ml; D72.829 Elevated white blood cell count, unspecified; E87.1 Hypo-osmolality and hyponatremia; E87.8 Other disorders of electrolyte and fluid balance, not elsewhere classified; R03.0 Elevated blood-pressure reading, without diagnosis of hypertension
CPT/HCPCS: 36415; 80048; 80076; 80143; 80307; 80320; 81001; 85025; 87426; 99285; C9803; G0480

== ENCOUNTER 2024-05-21 07:44 | Emergency (ER) | payer OTHER ==
[~2024-05-21] VITALS: Ht 175.3 cm; Wt 106.6 kg
[2024-05-21 08:35] LABS: APPEARANCE,URINE CLEAR (CLEAR); BILIRUBIN,URINE NEGATIVE (NEGATIVE); BLOOD, URINE NEGATIVE Ery/uL (NEGATIVE); COLOR,URINE YELLOW (YELLOW); KETONES,URINE NEGATIVE (NEGATIVE); LEUKOCYTE ESTERASE ,URINE NEGATIVE (NEGATIVE); NITRITE, URINE NEGATIVE (NEGATIVE); PROTEIN,URINE 2+ mg/dl (NEGATIVE); UGLUCOSE NEGATIVE (NEGATIVE); UROBILINOGEN,URINE 0.2 EU/dL (0.2)
[2024-05-21 08:39] LABS: BASOPHILS # (AUTO) 0.1 K/uL (0.0-0.2); BASOPHILS % (AUTO) 0.6 % (0.0-2.0); EOSINOPHILS % (AUTO) 0.1 % (0.0-6.0); HEMATOCRIT 46 % (39-51); HEMOGLOBIN 15.5 g/dL (13.5-17.5); LYMPHOCYTES # (AUTO) 2.1 K/uL (0.8-4.8); LYMPHOCYTES % (AUTO) 21.8 % (20.0-44.0); MEAN CORPUSCULAR HEMOGLOBIN 32 PG (26.0-33.0); MEAN CORPUSCULAR HGB CONC 34 g/dl (31.0-36.0); MEAN CORPUSCULAR VOLUME 93 fL (80-96); MONOCYTES # (AUTO) 0.4 K/uL (0.1-1.30); MONOCYTES % (AUTO) 3.8 % (2.0-12.0); NEUTROPHILS # (AUTO) 7.1 K/uL (1.8-8.9); NEUTROPHILS % (AUTO) 73.7 % (43.0-81.0); PLATELET COUNT (AUTO) 240 K/uL (150-450); RED BLOOD CELL COUNT(AUTO) 4.91 MIL/uL (4.5-6.0); RED CELL DISTRIBUTION WIDTH 14.8 % (11.5-15.0); WHITE BLOOD COUNT (AUTO) 9.7 K/uL (4.3-11.0)
[2024-05-21 08:40] LABS: ADD URINE CULTURE NO; BACTERIA,URINE Rare /HPF (None Seen); RBC,URINE 0-2 /HPF (0-2); SQUAMOUS EPITHELIAL CELL,UR None Seen /HPF (None Seen); WBC,URINE 0-2 /HPF (0-3)
[2024-05-21 08:45] LABS: CALCIUM, SERUM 8.5 mg/dL (8.5-10.1); CARBON DIOXIDE 28 mmol/L (21-32); CHLORIDE 104 mmol/L (98-107); CREATININE 0.9 mg/dL (0.6-1.3); GLUCOSE 77 mg/dL (74-106); POTASSIUM 3.6 mmol/L (3.5-5.1); SODIUM SERUM 143 mmol/L (136-145); UREA NITROGEN, BLOOD 5 mg/dL (7-18)
[2024-05-21 08:50] LABS: ALANINE AMINOTRANSFERASE 32 U/L (12-78); ALBUMIN 4.6 g/dL (3.4-5.0); ALCOHOL, BLOOD 108 mg/dL (0-10); ALKALINE PHOSPHATASE 87 U/L (46-116); ASPARTATE AMINOTRANSFERASE 25 U/L (15-37); BILIRUBIN,DIRECT 0.1 mg/dL (0.0-0.2); BILIRUBIN,TOTAL 0.5 mg/dL (0.2-1.0); TOTAL PROTEIN, SERUM 7.9 g/dL (6.4-8.2)
[2024-05-21 08:52] LABS: ACETAMINOPHEN <10 ug/ml (10-30); SALICYLATE 2.5 mg/dL (2.8-20.0)
[2024-05-21 08:53] LABS: BARBITURATE, URINE NEGATIVE (NEGATIVE); BENZODIAZEPINE, URINE NEGATIVE (NEGATIVE); CANNABINOID, URINE NEGATIVE (NEGATIVE); COCCAINE, URINE NEGATIVE (NEGATIVE); OPIATE, URINE NEGATIVE (NEGATIVE); PHENCYCLIDINE SCREEN,URINE NEGATIVE (NEGATIVE)
[2024-05-21 08:55] LABS: AMPHETAMINE, URINE POSITIVE (NEGATIVE)
[2024-05-21] MEDS ORDERED: AMLODIPINE BESYLATE 5 MG TABLET ONE (13:25)
[2024-05-21] MEDS: AMLODIPINE BESYLATE 5 MG TABLET PO ONE (13:27)
[2024-05-21] MEDS ORDERED: hydrALAZINE HCL 50 MG TABLET ONE ×2 (16:01→21:06)
[2024-05-21] MEDS: hydrALAZINE HCL 25 MG TABLET PO ONE ×2 (16:06→21:15)
[2024-05-21] MEDS: LORAZEPAM 1 MG TABLET PO ONE ×2 (18:45→21:15)
[2024-05-21] MEDS ORDERED: LORAZEPAM 1 MG TABLET ONE ×2 (18:49→21:06)
[2024-05-22] MEDS ORDERED: OLANZAPINE 10 MG VIAL IM ONE (05:37)
[2024-05-22] MEDS: OLANZAPINE 10 MG VIAL IM ONE ×2 (05:39→05:44)
[2024-05-22 10:05] VITALS: BP 155/86; TEMP 97.9; O2SAT 97
== END 2024-05-22 10:37 ==
LOC: ER 07:49
DX: R45.851 Suicidal ideations (principal); F10.10 Alcohol abuse, uncomplicated; F17.200 Nicotine dependence, unspecified, uncomplicated; F32.A Depression, unspecified; Z59.00 Homelessness unspecified; Z20.822 Contact with and (suspected) exposure to COVID-19; Y90.5 Blood alcohol level of 100-119 mg/100 ml
CPT/HCPCS: 99285; 85025; 80048; 80076; 81001; 36415; 87426; 80143; 80320; 80307; 96372; J3490; G0480

== ENCOUNTER 2024-09-16 05:43 | Emergency (ER) | payer OTHER ==
[~2024-09-16] VITALS: Ht 172.7 cm; Wt 74.8 kg
[2024-09-16 06:05] VITALS: BP 161/108; TEMP 98.5; O2SAT 98
[2024-09-16] MEDS ORDERED: IBUP-2314 PO (06:11)
[2024-09-16] MEDS ORDERED: AMLO-212 PO (06:11)
== END 2024-09-16 06:16 | disposition home or self-care (01) ==
LOC: ER 05:46
DX: I10 Essential (primary) hypertension (principal); F17.200 Nicotine dependence, unspecified, uncomplicated; Z59.00 Homelessness unspecified; Z76.0 Encounter for issue of repeat prescription

== ENCOUNTER 2024-10-01 15:56 | Emergency (ER) | payer OTHER ==
[~2024-10-01] VITALS: Ht 170.2 cm; Wt 90.7 kg
[~2024-10-01 15:56] MED LIST changes: +AMLO-212 PO; +IBUP-2314 PO; -PARO10TA86 PO; -QUET25TA PO
[2024-10-01 16:31] VITALS: BP 117/77; TEMP 97.9
[2024-10-01] MEDS ORDERED: PERM60CR4 TP (16:39)
[2024-10-01 16:54] VITALS: O2SAT 96
== END 2024-10-01 16:54 | disposition home or self-care (01) ==
LOC: ER 16:14
DX: R21 Rash and other nonspecific skin eruption (principal); Z59.00 Homelessness unspecified; Z79.899 Other long term (current) drug therapy

== ENCOUNTER 2024-10-09 04:40 | Emergency (ER) | payer OTHER ==
[~2024-10-09] VITALS: Ht 175.3 cm; Wt 95.7 kg
[~2024-10-09 04:40] MED LIST changes: +PERM60CR4 TP
[2024-10-09 05:54] LABS: BASOPHILS % (AUTO) 0.7 % (0.0-2.0); EOSINOPHILS # (AUTO) 0.2 K/uL (0.0-0.7); EOSINOPHILS % (AUTO) 4.5 % (0.0-6.0); HEMATOCRIT 51 % (39-51); HEMOGLOBIN 17.4 g/dL (13.5-17.5); LYMPHOCYTES % (AUTO) 19.9 % (20.0-44.0); MEAN CORPUSCULAR HEMOGLOBIN 33 PG (26.0-33.0); MEAN CORPUSCULAR HGB CONC 34 g/dl (31.0-36.0); MEAN CORPUSCULAR VOLUME 96 fL (80-96); MONOCYTES # (AUTO) 0.3 K/uL (0.1-1.30); MONOCYTES % (AUTO) 5.6 % (2.0-12.0); NEUTROPHILS # (AUTO) 3.4 K/uL (1.8-8.9); NEUTROPHILS % (AUTO) 69.3 % (43.0-81.0); PLATELET COUNT (AUTO) 205 K/uL (150-450); RED BLOOD CELL COUNT(AUTO) 5.33 MIL/uL (4.5-6.0); RED CELL DISTRIBUTION WIDTH 14.5 % (11.5-15.0); WHITE BLOOD COUNT (AUTO) 4.9 K/uL (4.3-11.0)
[2024-10-09 05:59] LABS: CALCIUM, SERUM 8.9 mg/dL (8.5-10.1); CARBON DIOXIDE 31 mmol/L (21-32); CHLORIDE 103 mmol/L (98-107); CREATININE 0.8 mg/dL (0.6-1.3); GLUCOSE 108 mg/dL (74-106); POTASSIUM 3.5 mmol/L (3.5-5.1); SODIUM SERUM 141 mmol/L (136-145); UREA NITROGEN, BLOOD 10 mg/dL (7-18)
[2024-10-09 06:05] LABS: INR 0.95 (0.91-1.10); PARTIAL THROMBOPLASTIN TIME 25.1 SEC (24.3-34.3); PROTHROMBIN TIME 10.1 SECS (9.2-11.1)
[2024-10-09] MEDS ORDERED: POLY17PO4 PO (06:51)
[2024-10-09] MEDS ORDERED: ARIP5TAB10 PO (06:51)
[2024-10-09] MEDS ORDERED: AMLO-212 PO (06:51)
[2024-10-09 07:02] VITALS: BP 144/89; TEMP 98; O2SAT 98
== END 2024-10-09 07:02 | disposition home or self-care (01) ==
LOC: ER 04:44
DX: I10 Essential (primary) hypertension (principal); K59.09 Other constipation; F17.200 Nicotine dependence, unspecified, uncomplicated; Z59.00 Homelessness unspecified; Z76.0 Encounter for issue of repeat prescription; Z87.440 Personal history of urinary (tract) infections
CPT/HCPCS: 36415; 71045-TC; 80048-TC; 84484-TC; 85025-TC; 85730-TC